=== PATIENT | male | born 1995 | race Caucasian/White ===

== ENCOUNTER → 2017-05-11 | Day surgery (SDC) | payer BC ==
[~2017-05-11] VITALS: Ht 182.9 cm; Wt 127.0 kg
--- NOTE | ~2017-05-11 | CO ---
Unit #: [id number] #: [id number] Patient: ELIZABETH DAILEY [id number] [address] [address] [id number] O MR#: [id number] NAME: ELIZABETH DAILEY ROOM: Age: 21 Sex: M Admission Date: 05/11/2017 : 1995 Attending Physician: Ronny Pettit M.D. Primary Care Physician: Primary Care Physician No Consultation Date: 05/11/2017 CONSULTATION REPORT BRIEF HISTORY The patient is a 21-year-old gentleman who presents with a 2-day history of right lower quadrant abdominal pain, some nausea. No vomiting. No diarrhea. No change in bowel movements. No hematemesis. No bright red blood per rectum. No history of similar type pain. No trauma. PAST MEDICAL HISTORY None. PAST SURGICAL HISTORY He has had an inguinal hernia. MEDICATIONS None. SOCIAL HISTORY No smoking. No alcohol. FAMILY HISTORY Negative for GI malignancy. REVIEW OF SYSTEMS No cardiopulmonary complaints at this time. Else, 10 systems reviewed and negative. PHYSICAL EXAMINATION GENERAL: He is awake, alert, appropriate, currently afebrile. HEENT: Unremarkable. NECK: Supple. No JVD. Trachea midline. LUNGS: Clear to auscultation. Bilateral breath sounds symmetric. CARDIOVASCULAR: Regular rate and rhythm. ABDOMEN: Soft. It is tender in the right lower quadrant. Point tenderness at McBurney point. No rebound. No masses. No hepatosplenomegaly. EXTREMITIES: No clubbing, cyanosis, or edema. DIAGNOSTIC STUDIES LABORATORY RESULTS: Show a normal white count. Chemistries are normal. IMAGING STUDIES: CT scan shows pericecal inflammation at the appendix. ASSESSMENT Appendicitis. Unit #: [id number] #: [id number] Patient: ELIZABETH DAILEY PLAN Recommend laparoscopic appendectomy. Discussed risks and benefits in detail including possibility of conversion to open. He understands and wished to proceed. Dictated by... Nicholas Rivera/chilo TD: 05/13/2017 01:48 JOB #: [id number] CONSULTATION REPORT Page 1 of 1 X Ronny Pettit MD CONSULTATION REPORT
--- NOTE | ~2017-05-11 | CT4 ---
[facility] A Service [facility] RADIOLOGY TEXT RESULTS PATIENT: ELIZABETH DAILEY LOCATION: MAINTENANCE OF [address] FOREMAN : [birth year] UNIT #: [id number] AGE: [address]: Ronny Pettit MD SEX: M ORDER DR: [id number] [facility] [address] [facility]. [place], [place] [address] [id number] O MR#: [id number] Acc #: [id number] NAME: ELIZABETH DAILEY : 1995 SEX: M STUDY DATE/TIME: 05/11/2017 03:38 UNIT: [facility]TENA[address] [employer] [address] [employer] ROOM: STUDY DESCRIPTION: CT Abd and Pelv Wo Cont Attending Physician: Ronny Pettit M.D. Ordering Physician: Ed Jasvir Montoya M.D. Primary Care Physician: No Primary Care Physician MEDICAL IMAGING REPORT This report is preliminary unless electronic signature is present EXAM Abdomen and pelvis CT, 05/11/2017 at 03:38. INDICATIONS Abdominal pain for 2 days with nausea. TECHNIQUE Axial noncontrast images were obtained through the abdomen and pelvis. Multiplanar reformats were obtained. This CT exam was performed with one or more of the following radiation dose reduction techniques: automatic exposure control, adjustment of mA and/or kV according to patient size, and iterative reconstruction. COMPARISON No comparison. FINDINGS ABDOMEN: Lung bases are clear. Gallbladder normal. No renal or ureteral stones. No hydronephrosis. Unenhanced solid organs are normal. Unopacified GI tract is normal. No free fluid. PELVIS: There are no lower ureteral stones. The bladder is normal. The appendix is dilated and fluid-filled with adjacent fat stranding. Findings are in keeping with acute appendicitis. No abscess or free fluid identified. The appendix measures up to 14 mm in diameter. The remainder of the unopacified GI tract is normal. IMPRESSION 1. Acute appendicitis. No abscess, free fluid identified. 2. Remainder of the GI tract is normal. 3. No renal or ureteral stones. No hydronephrosis. Dictated by... [facility] A Service [facility] RADIOLOGY TEXT RESULTS PATIENT: ELIZABETH DAILEY LOCATION: [facility] #: [id number] : [birth year] UNIT #: [id number] AGE: [address]: Ronny Pettit MD SEX: M ORDER DR: Hakeem Clayton Jr., M.D. THIS IS AN ELECTRONICALLY VERIFIED REPORT Hakeem Clayton Jr., M.D. at 05/12/2017 4:57 AM RENETTA/pili TD: 05/11/2017 23:11 JOB #: [id number] MEDICAL IMAGING REPORT Page 1 of 1 COPY
--- NOTE | ~2017-05-11 | OR ---
Unit #: [id number] #: [id number] Patient: ELIZABETH DAILEY [id number] [address] [address] [id number] O MR#: [id number] NAME: ELIZABETH DAILEY ROOM: Date of Procedure: 05/11/2017 Admission Date: 05/11/2017 Surgeon: Ronny Pettit M.D. : 1995 Attending Physician: Ronny Pettit M.D. Primary Care Physician: Primary Care Physician No OPERATIVE REPORT PREOPERATIVE DIAGNOSIS Appendicitis. POSTOPERATIVE DIAGNOSIS Appendicitis. PROCEDURE PERFORMED Laparoscopic appendectomy. NATIONAL RECRUITER None. ANESTHESIA General. ESTIMATED BLOOD LOSS Minimal. IV FLUIDS 800 crystalloid. COMPLICATIONS None. INDICATIONS FOR PROCEDURE The patient is a 21-year-old with appendicitis. DESCRIPTION OF PROCEDURE The patient was taken to the operating theater and placed in supine position. General anesthesia was induced. The abdomen was prepped and draped. A 5-mm Optiview was then placed left of midline without difficulty. The abdomen was insufflated to 15 mmHg with CO2. Under direct vision, I placed a right lower quadrant 10 mm, left lower quadrant 5 mm ports. The patient was placed in Trendelenburg. I identified acute appendicitis. I then dissected the cecum off her retroperitoneal attachments. I fired a ELGIN stapler across the base of the appendix as well as the mesoappendix. The appendix was then placed into an endobag and removed via the 10 mm port. Hemostasis was adequate. I removed the ports under direct vision and closed the fascia with 0 Vicryl and skin with 4-0 Vicryl. The patient tolerated the procedure well and was sent to recovery room in good condition. Unit #: [id number] #: [id number] Patient: ELIZABETH DAILEY Dictated by... Nicholas RiveraO/miltonl TD: 05/12/2017 05:16 JOB #: [id number] OPERATIVE REPORT Page 1 of 1 X Ronny Pettit MD PROCEDURE OPERATIVE NOTE
[2017-05-11 01:12] LABS: URINE SOURCE CLEAN CATCH
[2017-05-11 01:19] LABS: URINE APPEARANCE CLEAR; URINE BILIRUBIN NEG (NEG); URINE BLOOD NEG (NEG); URINE COLOR YELLOW; URINE GLUCOSE NEG (NEG); URINE KETONE TRACE (NEG); URINE LEUKOCYTE ESTERASE NEG (NEG); URINE NITRATE NEG (NEG); URINE PROTEIN NEG (NEG)
[2017-05-11 01:22] LABS: BASOPHIL# 0.1 X10e3 (0-0.3); BASOPHIL% 1.3 % (0-2.5); EOSINOPHIL# 0.6 X10e3 (0-0.7); EOSINOPHIL% 5.3 % (0.0-7.0); HEMATOCRIT 44.1 % (38.0-50.0); HEMOGLOBIN 14.6 gm/dL (13.0-16.0); LYMPHOCYTE# 2.9 X10e3 (1.0-3.5); LYMPHOCYTE% 27.3 % (17.0-45.0); MEAN CELL VOLUME 82.7 FL (83-96); MEAN CORPUSCULAR HEMOGLOBIN 27.4 PG (28-34); MEAN CORPUSCULAR HGB CONC 33.1 g/dL (30-36); MEAN PLATELET VOLUME 7.7 FL (6.5-11.5); MONOCYTE# 0.6 X10e3 (0-1.0); MONOCYTE% 6.1 % (3.0-12.0); NEUTROPHIL# 6.3 X10e3 (1.5-7.1); PLATELET COUNT 401 X10e3 (140-420); RED BLOOD COUNT 5.33 X10e (3.90-5.60); RED CELL DISTRIBUTION WIDTH 13.6 % (11.0-15.5); WHITE BLOOD COUNT 10.5 X10e3 (4.0-10.5)
[2017-05-11 01:23] LABS: DIFF IND NO
[2017-05-11 01:23] LABS: CULTURE INDICATED? NO
[2017-05-11 01:42] LABS: BILIRUBIN, DIRECT 0.1 mg/dL (0.0-0.2); BILIRUBIN,INDIRECT 0.7 mg/dL (0.0-0.9); BILIRUBIN,TOTAL 0.8 mg/dL (0.2-2.0); BUN/CREATININE RATIO 14.44; CALCIUM SERUM 9.3 mg/dL (8.4-10.2); CREATININE SERUM 0.9 mg/dL (0.6-1.4); GLOM FILT RATE Estimated 121.7 mL/min (>60); POTASSIUM 4.1 mmol/L (3.5-5.1); PROTEIN TOTAL SERUM 8.1 g/dL (6.0-8.3)
== END | disposition home or self-care (01) ==
LOC: CED 00:37 → COPS 07:56
DX: K35.3 Acute appendicitis with localized peritonitis (principal); E66.9 Obesity, unspecified; Z68.38 Body mass index [BMI] 38.0-38.9, adult
CPT/HCPCS: 36415; 74176; 80048; 80076; 81003; 83690; 85025; 88304; 96365; 99285; J1100; J1644; J2250; J2405; J2543; J2710; J3010